=== PATIENT | female | born 1975 | race Hispanic/Latino ===

== ENCOUNTER 2017-11-27 09:06 | Day surgery (SDC) | payer MEDICAID ==
[~2017-11-27] VITALS: Ht 160 cm; Wt 86.8 kg
[~2017-11-27 09:06] MED LIST: ESOM40CA PO; LISI10TA7 PO; METF500T6 PO; SODIUM CHLORIDE 0.9% 1000ML 1,000 ML IV ONE
[2017-11-27 10:10] VITALS: BP 175/91
[2017-11-27 10:30] VITALS: BP 156/79
[2017-11-27] MEDS ORDERED: IBUP-2071 PO (10:42)
[2017-11-27] MEDS ORDERED: PROPOFOL 10 MG/ML 20ML VIAL IV ONE (12:01)
== END 2017-11-27 13:15 | disposition home or self-care (01) ==
LOC: DAH 09:06
PROVIDERS: ATTEND Internal Medicine
DX: K29.50 Unspecified chronic gastritis without bleeding (principal); K22.8 Other specified diseases of esophagus; K31.89 Other diseases of stomach and duodenum; I10 Essential (primary) hypertension; M81.0 Age-related osteoporosis without current pathological fracture; M19.90 Unspecified osteoarthritis, unspecified site; Z98.890 Other specified postprocedural states; Z68.33 Body mass index [BMI] 33.0-33.9, adult; Z90.49 Acquired absence of other specified parts of digestive tract; E11.43 Type 2 diabetes mellitus with diabetic autonomic (poly)neuropathy; K31.84 Gastroparesis; B96.81 Helicobacter pylori [H. pylori] as the cause of diseases classified elsewhere
CPT/HCPCS: 43239; 82948 ×2; 88305; 88312; 88342; A4606; J2704; J7030